=== PATIENT | female | born 1945 | race Caucasian/White ===

== ENCOUNTER → 2020-06-12 | Outpatient (CLI) | payer MEDICARE | LOC: EXRD 06-02 09:30 | DX: M81.0 Age-related osteoporosis without current pathological fracture (principal) | CPT/HCPCS: 77080 ==

== ENCOUNTER 2020-10-22 13:16 | Observation (INO) | payer MEDICARE ==
[~2020-10-22] VITALS: Ht 157.5 cm; Wt 66.7 kg
[2020-10-22 13:59] LABS: RED BLOOD COUNT 4.45 M/UL (4.00-5.10); WHITE BLOOD COUNT 8.6 K/UL (4.5-11.0)
[2020-10-22 14:27] LABS: BUN/CREATININE RATIO 19 (0-10)
[2020-10-22] MEDS ORDERED: ALPRAZOLAM0.5 MG PO (18:24)
[2020-10-22] MEDS ORDERED: SERTRALINE HCL50 MG PO (18:25)
[2020-10-22] MEDS ORDERED: FOSAMAX70 MG PO (18:25)
[2020-10-22] MEDS ORDERED: CARVEDILOL6.25 MG PO (18:29)
[2020-10-22] MEDS ORDERED: LEVOTHYROXINE75 MCG PO (18:29)
[2020-10-22] MEDS ORDERED: LANSOPRAZOLE30 M1 PO (18:30)
[2020-10-22] MEDS ORDERED: VITAMIN D21250 MCG PO (18:31)
[2020-10-23] MEDS ORDERED: HYDROCHLOROTHIA25 MG PO (01:04)
[2020-10-23 07:17] LABS: HEMOGLOBIN 13.5 gm/dl (12.3-15.3); RED BLOOD COUNT 4.3 M/UL (4.00-5.10); WHITE BLOOD COUNT 7.8 K/UL (4.5-11.0)
[2020-10-23 08:05] LABS: BUN/CREATININE RATIO 12 (0-10)
[2020-10-23] MEDS ORDERED: LISINOPRIL5 MG PO (09:41)
[2020-10-23] MEDS ORDERED: CATAPRES 0.1MG0.1 MG PO (09:57)
[2020-10-23] MEDS ORDERED: FOSAMAX70 MG PO (10:08)
[2020-10-23] MEDS ORDERED: XANAX0.5 MG PO (10:08)
[2020-10-23] MEDS ORDERED: SYNTHROID75 MCG PO (10:09)
[2020-10-23] MEDS ORDERED: IBU800 MG PO (10:09)
== END 2020-10-23 11:45 | disposition home or self-care (01) ==
LOC: ER1 13:16 → M/S 16:16 → CDU 16:16 → M/S 10-23 00:59
PROVIDERS: Physician Assistant; Physician Assistant Medical; ADMIT Internal Medicine
DX: I10 Essential (primary) hypertension (principal); E87.1 Hypo-osmolality and hyponatremia; S00.03XA Contusion of scalp, initial encounter; F41.9 Anxiety disorder, unspecified; Z85.850 Personal history of malignant neoplasm of thyroid; Z79.899 Other long term (current) drug therapy; Z88.5 Allergy status to narcotic agent; Z20.822 Contact with and (suspected) exposure to COVID-19; W19.XXXA Unspecified fall, initial encounter; Z90.89 Acquired absence of other organs
CPT/HCPCS: 36415; 70450; 80048; 80053; 82550; 82553; 83735; 83874; 84439; 84443; 84484; 85025; 85027; 87086; 93005; 97161; 99285; G0378; J0360; J7030; U0002

== ENCOUNTER → 2021-01-02 | Outpatient (CLI) | payer MEDICARE ==
[~2021-01-02] MED LIST: ALPRAZOLAM0.5 MG PO; CARVEDILOL6.25 MG PO; CATAPRES 0.1MG0.1 MG PO; FOSAMAX70 MG PO; HYDROCHLOROTHIA25 MG PO; IBU800 MG PO; LANSOPRAZOLE30 M1 PO; LEVOTHYROXINE75 MCG PO; LISINOPRIL5 MG PO; SERTRALINE HCL50 MG PO; SYNTHROID75 MCG PO; VITAMIN D21250 MCG PO; XANAX0.5 MG PO
[2021-01-02 13:30] LABS: HEMOGLOBIN 13.2 gm/dl (12.3-15.3); RED BLOOD COUNT 4.25 M/UL (4.00-5.10); WHITE BLOOD COUNT 7.5 K/UL (4.5-11.0)
[2021-01-02 13:52] LABS: BUN/CREATININE RATIO 16 (0-10)
== END ==
LOC: LAB 12:48
PROVIDERS: Surgery
DX: R19.5 Other fecal abnormalities (principal)
CPT/HCPCS: 71046; 80048; 85025; 93005; U0003